=== PATIENT | male | born 1995 | race Caucasian/White ===

== ENCOUNTER 2021-10-21 18:16 | Emergency (ER) | payer MEDICAID, SELFPAY ==
[2021-10-21 19:49] VITALS: BP 153/81; PULSE 77; RESP 18; TEMP 36.5; O2SAT 99
[2021-10-21 20:19] LABS: Appearance Urine CLEAR; Color Urine YELLOW; Glucose Urine UA NEG (NEG); Leukocyte Esterase Urine NEG (NEG); Nitrite Urine NEG (NEG); Urine Blood NEG (NEG); Urine Ketones NEG (NEG); Urine Protein NEG (NEG-TRACE)
[2021-10-21 20:30] LABS: RBC Urine 0-2 /HPF (0); WBC Urine 0-2 /HPF (0-4)
--- NOTE | 2021-10-21 20:30 | ED.GENADULT ---
HPI - General Adult General Chief complaint: General Medical Stated complaint: ?STD Source: patient Mode of arrival: ambulatory Limitations: no limitations History of Present Illness HPI narrative: 25-year-old male presents with suspicion for sexually transmitted infection and anxiety. Onset (ago): day(s) Location: genitals Severity: moderate Associated symptoms: denies other symptoms Treatments prior to arrival: none Related Data Previous Rx's Medication Instructions Recorded hydroxyzine HCl 25 mg tablet 25 mg PO TID PRN #30 tab 10/21/21 metronidazole 500 mg tablet 500 mg PO Q12H 7 Days #14 tab 10/21/21 Allergies Allergy/AdvReac Type Severity Reaction Status Date / Time No Known Allergies Allergy Verified 10/21/21 20:58 Review of Systems Review of Systems: Constitutional: No Fever, No Chills ENT/Mouth: No Ear Pain, No Hoarseness, No sore throat Eyes: No Eye Pain, No Swelling, No Redness, No Foreign Body Cardiovascular: No Chest Pain, No SOB Respiratory: No Cough, No Dyspnea Gastrointestinal: No Nausea, No Vomiting, No Diarrhea, No abdominal Pain Genitourinary: Positive penile discharge. No Dysuria, No Hematuria Musculoskeletal: No joint pain, No Myalgias, No Joint Swelling Skin: No Skin lacerations, No rash Neuro: No Weakness, No Numbness, No Paresthesias, No Loss of Consciousness, No Dizziness, No Headache Psych: No Anxiety/Panic, No Depression Heme/Lymph: no easy bruising, no Lymphadenopathy Endocrine: No Polyuria, No Polydipsia Yes all other systems are reviewed and are negative [facility] Past Medical History Attestation statement: The following information was validated with the patient. Source: old records reviewed Medical History Anxiety Panic attack Social History Social History Advance Directives: No Advance Directives Information Provided: Yes Physical Exam Vital Signs: Vital Signs: Last Vital Signs Temp 97.7 F 10/21/21 19:49 Pulse 77 10/21/21 19:49 Resp 18 10/21/21 19:49 BP 153/81 H 10/21/21 19:49 Pulse Ox 99 10/21/21 19:49 BMI result Body Mass Index 30.0 Appearance: Alert. Oriented X3. No acute distress. Eyes: Pupils equal, round and reactive to light. ENT: Pharynx normal. Neck: Normal inspection. Neck supple. CVS: Normal heart rate and rhythm. Pulses normal. Respiratory: No respiratory distress. Breath sounds normal. Abdomen: Soft and nontender. Genitourinary: Positive penile discharge. No testicular tenderness lesions or penile pain noted. Skin: Skin warm and dry. Normal skin color. Normal skin turgor. Extremities: No lower extremity edema. Neuro: No motor deficit. No sensory deficit. Course Course Course Narrative: 25-year-old male presents with suspicion for STI. Will test for GC chlamydia. Treat with azithromycin and ceftriaxone. During initial consult patient stated that he feels significant anxiety. Has had palpitations in the past and was worked up by Cardiology approximately 1 month ago or less with a Holter monitor. Patient did not have any significant findings from that exam. States that he was prescribed propranolol however stopped taking it as he did not feel well on that medication. Will order EKG. EKG shows normal sinus rhythm. I did refer patient back to his housekeeping laundry worker for further evaluation. During discharge instructions patient stated that he feels that he has balanitis. States that he has been googling all of his symptoms and feels that he needs to be treated with further medications. I did prescribe Flagyl. Patient was advised not to drink alcohol with this medication. Patient was not able to be redirected. I did suggest outpatient psychiatry Patient verbalized understanding of and agrees plan of care discharge home. Medical Decision Making Differential Diagnosis Differential Diagnosis: STI, balantitis, anxiety Medical Records Medical records reviewed: Yes I reviewed the patient's medical records. Lab Data Lab results reviewed: Yes I reviewed the patient's lab results. Labs: Lab Results 10/21/21 Range/Units 20:10 Urine Color YELLOW Urine Appearance CLEAR Urine pH 7.0 (5.0-8.0) Ur Specific [place] 1.010 (1.005-1.025) Urine Protein NEG (NEG-TRACE) MG/DL Urine Glucose (UA) NEG (NEG) MG/DL Urine Ketones NEG (NEG) MG/DL Urine Blood NEG (NEG) Urine Nitrite NEG (NEG) Ur Leukocyte Esterase NEG (NEG) Urine RBC 0-2 (0) /HPF Urine WBC 0-2 (0-4) /HPF Ur Squamous Epith Cells NONE /LPF Urine Bacteria NONE /LPF Discharge Plan Discharge Clinical Impression: Sexually transmitted infection, Anxiety, Balanitis Patient Disposition: Home, Self-Care Instructions: Sexually Transmitted Diseases (ED), Safe Sex Practices (ED), Balanitis (ED), Anxiety (ED) Additional Instructions: You were evaluated for sexually transmitted infection. We prescribed azithromycin and ceftriaxone. You do not need further treatment for this incident. If you get re-exposed you will need further treatment. Please inform partners. Your test results are pending. We prescribed Flagyl for balanitis. Please do not drink alcohol you will have significant and severe side effects. Your evaluated for anxiety. EKG is normal sinus rhythm. Please continue follow-up with your housekeeping laundry worker. We prescribed hydroxyzine for anxiety. Please take this medication as prescribed. Please consider following up with outpatient psychiatry. Thank you for choosing this emergency department for evaluation. Please follow-up with primary care physician as needed. Return to the emergency department for any new, concerning, or worsening symptoms. Prescriptions: New hydroxyzine HCl 25 mg tablet 25 mg PO TID PRN (Reason: anxiety) Qty: 30 RF: 0 metronidazole 500 mg tablet 500 mg PO Q12H 7 Days Qty: 14 RF: 0 Interventions: ED Discharge Assessment Last Done: 10/21/21 23:00 Discharge Date/Time: 10/21/21 23:03
--- NOTE | 2021-10-21 20:58 | ECG_ITS ---
Test Reason : ANXIOUS Blood Pressure : / mmHG Vent. Rate : 070 BPM Atrial Rate : 070 BPM P-R Int : 144 ms QRS Dur : 102 ms QT Int : 382 ms P-R-T Axes : 049 067 052 degrees QTc Int : 412 ms Normal sinus rhythm with sinus arrhythmia Normal ECG No previous ECGs available Referred By: Mine Hensley Electronically Signed By:Luciano Jean-Baptiste
[2021-10-21] MEDS: Azithromycin 500 MG TABLET 1000 MG PO (22:25)
[2021-10-21] MEDS: cefTRIAXone sodium 500 MG, Lidocaine HCl 1 % MPF 1 ML IM (22:26)
[2021-10-21] MEDS: Lidocaine HCl 2 % MPF 5 ML VIAL SUBCUT (22:36)
[2021-10-22 06:50] LABS: CT PCR NOT DETECTED (Not Detect.); NG PCR NOT DETECTED (Not Detect.)
== END 2021-10-21 23:03 | disposition home or self-care (01) ==
PROVIDERS: Emergency Provider Emergency Medicine
DX: A64 Unspecified sexually transmitted disease (principal); N48.1 Balanitis; F41.9 Anxiety disorder, unspecified
CPT/HCPCS: 81001; 87491; 87591; 93005; 96372; 99283; 99284; J0696

== ENCOUNTER 2021-11-02 09:39 | Emergency (ER) | payer MEDICAID, SELFPAY ==
[2021-11-02 10:12] VITALS: BP 122/82; PULSE 92; RESP 18; TEMP 36.2; O2SAT 100; BMI 24.5
--- NOTE | 2021-11-02 11:00 | ECG_ITS ---
Test Reason : ARRHYTHMIA Blood Pressure : / mmHG Vent. Rate : 081 BPM Atrial Rate : 081 BPM P-R Int : 146 ms QRS Dur : 092 ms QT Int : 366 ms P-R-T Axes : 072 067 044 degrees QTc Int : 425 ms Normal sinus rhythm Normal ECG When compared with ECG of 21-OCT-2021 22:04, No significant change was found Referred By: Tawana Marcano Electronically Signed By:MARTHA VYAS MD
--- NOTE | 2021-11-02 11:05 | ED_ITS ---
HPI - General Adult General Chief complaint: Arrhythmia/Palpitations Stated complaint: High heart rate Time Seen by Provider: 11/02/21 10:40 Source: patient Mode of arrival: ambulatory Limitations: no limitations History of Present Illness HPI narrative: 25-year-old male here with reports of fast heart rate up to 130 today. Patient tells me that he noticed it while he was showering and checked his pulse and noticed it was passed. He went to lay down and his pulse improved to 80. He tells me he has had intermittent chest pain and palpitations over the last 6 months. He has been seen by a business banking sales assistant through [facility]. He tells me that they have done blood work, chest x-ray, Holter monitor all normal. He is scheduled for an outpatient stress test the end of this month. He was taking propranolol for his heart rate but discontinued this as he was feeling lightheaded from the medication. He denies today any associated chest pain, shortness of breath, nausea, diaphoresis. No recent travel or sick contact. No leg swelling or pain Related Data Previous Rx's Medication Instructions Recorded hydroxyzine HCl 25 mg tablet 25 mg PO TID PRN #30 tab 10/21/21 metronidazole 500 mg tablet 500 mg PO Q12H 7 Days #14 tab 10/21/21 Allergies Allergy/AdvReac Type Severity Reaction Status Date / Time No Known Allergies Allergy Verified 11/02/21 10:12 Review of Systems Review of Systems: Yes all other systems are reviewed and are negative Constitutional: Constitutional: Reports no additional constitutional complaints, Denies body ache(s), Denies chills, Denies fever(s), Denies headache(s) and Denies weakness Eyes: Eyes: Reports no additional eye complaints and Denies change in vision ENT: Reports system reviewed and no additional complaints, except as documented, Denies dizziness, Denies headache(s), Denies nasal congestion, Denies nasal discharge and Denies neck pain Cardiovascular: Cardiovascular: Reports no additional cardiovascular complaints, Denies chest pain, Denies leg edema, Reports palpitations and Denies dyspnea Respiratory: Respiratory: Reports no additional respiratory complaints, Denies cough and Denies dyspnea Gastrointestinal: Gastrointestinal: Reports no additional gastrointestinal complaints, Denies abdominal pain, Denies diarrhea, Denies nausea and Denies vomiting Genitourinary: Genitourinary: Denies urinary incontinence Musculoskeletal: Musculoskeletal: Reports no additional musculoskeletal complaints, Denies back pain, Denies arthralgias, Denies joint swelling, Denies neck pain, Denies numbness and Denies tingling Integumentary/Breasts: Skin/Breast: Reports system reviewed and no additional complaints, except as docu and Denies rash Neurologic: Reports system reviewed and no additional complaints, except as documented, Denies Abnormal speech present, Denies dizziness, Denies headache(s), Denies numbness, Denies tingling and Denies weakness Endocrine: Endocrine: Reports palpitations PMFSH Past Medical History Attestation statement: The following information was validated with the patient. Source: old records reviewed and nursing notes reviewed Medical History Anxiety Panic attack Social History Social History Alcohol intake: former Patient Tobacco Use Status: Former Tobacco user Smoked in Last 30 Days: No Use of substances other than those prescribed or required for medical reasons: No Advance Directives: Yes Advance Directives Information Provided: Yes Advance Directives on File: No Physical Exam Vital Signs: Vital Signs: Last Vital Signs Temp 98.5 F 11/02/21 11:11 Pulse 90 11/02/21 11:14 Resp 16 11/02/21 11:11 BP 134/88 11/02/21 11:14 Pulse Ox 100 11/02/21 11:11 BMI result Body Mass Index 24.5 Const: General: cooperative, healthy appearing, comfortable and no acute distress Orientation/consciousness: patient oriented x3 Limitations: no limitations HENMT: Head: Yes normal to inspection Ears: hearing grossly normal bilaterally General nose exam: Normal external nose present Face and sinus: Yes normal facial exam Mouth: Normal oral and palatal mucosa present Throat: Yes posterior oropharynx normal Eyes: General: appearance normal, both eyes and all related structures Pupils: Equal, round and reactive pupils present Neck: Neck: Yes normal visual inspection Chest: Chest palpation & inspection: normal inspection of the chest Resp: Effort & Inspection: normal respiratory effort Auscultation: clear to auscultation bilaterally Cardio: Rate: regular rate Rhythm: regular rhythm Peripheral pulses: Peripheral pulses 2+ throughout GI: Inspection: Yes normal to inspection Palpation (GI): Soft to palpation and nontender Auscultation: normal bowel sounds Back/Spine/Pelvis: Thoracic/Lumbar Spine: thoracic and lumbar spine normal to inspection Skin: General skin exam: no rashes or lesions noted Neuro: General: patient oriented x3, no focal motor deficits and normal sensation to monofilament Cranial nerves: Yes Equal, round and reactive pupils present Cognition (Neuro): normal cognition Speech: No Abnormal speech present Gait exam (Neuro): Normal gait present Motor exam (neuro): 5/5 motor strength present throughout Extrem: General: Yes normal to inspection, Yes no pedal edema and Yes no calf tenderness Course Course Course Narrative: 25-year-old male with longstanding history of tachycardia, intermittent chest pain followed by cardiology here with reports of palpitations with heart rate of 120-130 today while standing. No other associated symptoms. On arrival the patient's heart rate is normal. Exam is benign. Will check labs, EKG, orthostatics vital signs 1230-labs unremarkable. EKG shows no ischemic ischemic changes with a normal troponin. Orthostatics are negative. Patient has a heart rate of 80 sinus rhythm on the case monitor while he has been here in the emergency department with no changes. Recommend he follow-up outpatient with his primary care doctor. He was informed that his AST and ALT are mildly elevated he can follow up with primary care doctor for repeat labs. no abdominal pain or vomiting. Reviewed worrisome signs and symptoms of when to return to the emergency department. Comfortable discharge home. Medical Decision Making Medical Records Medical records reviewed: Yes I reviewed the patient's medical records. Lab Data Lab results reviewed: Yes I reviewed the patient's lab results. Result diagrams: 11/02/21 11:19 11/02/21 11:19 Labs: Lab Results 11/02/21 11/02/21 11/02/21 Range/Units 11:19 11:19 11:19 WBC 6.0 (4.8-10.8) X10*3/uL RBC 5.81 H (4.60-5.80) X10*6/uL Hgb 16.0 (14.0-18.0) g/dl Hct 45.8 (42.0-52.0) % MCV 78.8 L (80.0-98.0) fL MCH 27.5 (27.0-33.0) pg MCHC 34.9 (31.0-36.0) g/dl RDW 12.3 (11.0-16.0) % Plt Count 192 (160-400) X10*3/uL MPV 9.7 (9.4-12.4) fL Immature Gran % (Auto) 0.2 (0.0-0.4) % Neut % (Auto) 57.2 (45-73) % Lymph % (Auto) 31.4 (20-40) % [place] % (Auto) 8.5 (2-11) % Eos % (Auto) 2.5 (0-4) % Baso % (Auto) 0.2 (0-2) % Lymph # (Auto) 1.9 (1.2-4.9) X10*3/uL [place] # (Auto) 0.5 (0.1-1.2) X10*3/uL Eos # (Auto) 0.2 (0.0-0.4) X10*3/uL Baso # (Auto) 0.0 (0.0-0.2) X10*3/uL Abs Immat Gran (auto) 0.01 (0.00-0.03) X10*3/uL Absolute Neuts (auto) 3.4 (2.0-8.3) x10*3/uL Absolute Nucleated RBC 0.000 (0.0-0.012) X10*3/uL Nucleated RBC % (auto) 0.0 (0.0-0.2) /100WBC Sodium 140 (135-145) mmol/L Potassium 3.9 (3.3-5.1) mmol/L Chloride 106 (96-108) mmol/L Carbon Dioxide 25 (22-29) mmol/L Anion Gap 13 (12-20) BUN 12 (9-16) mg/dL Creatinine 0.91 (0.5-1.4) mg/dL Estim Creat Clear Calc 122.1 Estimated GFR > 60 Random Glucose 82 (60-115) mg/dL Calcium 9.9 (8.4-10.2) mg/dL Magnesium 2.1 (1.6-2.6) mg/dL Total Bilirubin 1.5 H (0.0-1.0) mg/dL Direct Bilirubin 0.5 (0.0-0.5) mg/dL AST 52 H (5-37) U/L ALT 86 H (0-40) U/L Alkaline Phosphatase 86 (39-117) U/L Troponin I High Sens < 3.5 (<3.5-35.0) ng/L Total Protein 7.5 (6.5-8.0) g/dL Albumin 4.8 (3.5-5.0) g/dL TSH 1.56 (0.32-4.0) uIU/mL Discharge Plan Discharge Clinical Impression: Palpitations Patient Disposition: Home, Self-Care Instructions: Heart Palpitations (ED) Additional Instructions: Blood work looks all normal with the exception of mildly elevated liver enzymes. These can be checked outpatient by your primary care doctor Follow-up with your business banking sales assistant outpatient Prescriptions: No Action hydroxyzine HCl 25 mg tablet 25 mg PO TID PRN (Reason: anxiety) Qty: 30 RF: 0 metronidazole 500 mg tablet 500 mg PO Q12H 7 Days Qty: 14 RF: 0 Referrals: Physician,None [Primary Care Provider] - 2 days
[2021-11-02 11:11] VITALS: BP 125/89; PULSE 73; RESP 16; TEMP 36.9; O2SAT 100
[2021-11-02 11:12] VITALS: BP 108/76; PULSE 82
[2021-11-02 11:13] VITALS: BP 110/86; PULSE 86
[2021-11-02 11:14] VITALS: BP 134/88; PULSE 90
[2021-11-02 11:26] LABS: MANUAL DIFF FLAG NO
[2021-11-02 11:29] LABS: Basophils Percent Auto 0.2 % (0-2); Eosinophils Absolute Auto 0.2 X10*3/uL (0.0-0.4); Eosinophils Percent Auto 2.5 % (0-4); Hematocrit 45.8 % (42.0-52.0); Imm Gran Abs Auto 0.01 X10*3/uL (0.00-0.03); Imm Gran Pct Auto 0.2 % (0.0-0.4); Lymphocytes Absolute Auto 1.9 X10*3/uL (1.2-4.9); Lymphocytes Percent Auto 31.4 % (20-40); Mean Corpuscular HGB Conc 34.9 g/dl (31.0-36.0); Mean Corpuscular Hemoglobin 27.5 pg (27.0-33.0); Mean Corpuscular Volume 78.8 fL (80.0-98.0); Mean Platelet Volume 9.7 fL (9.4-12.4); Monocytes Absolute Auto 0.5 X10*3/uL (0.1-1.2); Monocytes Percent Auto 8.5 % (2-11); Neutrophils Absolute Auto 3.4 x10*3/uL (2.0-8.3); Neutrophils Percent Auto 57.2 % (45-73); Platelet Count 192 X10*3/uL (160-400); Red Blood Count 5.81 X10*6/uL (4.60-5.80); Red Cell Distribution Width 12.3 % (11.0-16.0)
[2021-11-02 11:46] LABS: Alanine Aminotransferase 86 U/L (0-40); Albumin Level 4.8 g/dL (3.5-5.0); Alkaline Phosphatase 86 U/L (39-117); Anion Gap 13 (12-20); Aspartate Amino Transferase 52 U/L (5-37); Bilirubin Direct 0.5 mg/dL (0.0-0.5); Bilirubin Total 1.5 mg/dL (0.0-1.0); Blood Urea Nitrogen 12 mg/dL (9-16); Calcium 9.9 mg/dL (8.4-10.2); Carbon Dioxide 25 mmol/L (22-29); Chloride 106 mmol/L (96-108); Creatinine Clr Calc Pharmacy 122.1; Estimated Glomerular Filt Rate > 60; Glucose Random 82 mg/dL (60-115); Magnesium 2.1 mg/dL (1.6-2.6); Potassium 3.9 mmol/L (3.3-5.1); Sodium 140 mmol/L (135-145); Total Protein 7.5 g/dL (6.5-8.0)
[2021-11-02 11:49] LABS: Troponin-I High Sensitivity < 3.5 ng/L (<3.5-35.0)
[2021-11-02 12:07] LABS: Thyroid Stimulating Hormone 1.56 uIU/mL (0.32-4.0)
== END 2021-11-02 13:06 | disposition home or self-care (01) ==
PROVIDERS: Nurse Practitioner Family; Emergency Provider Emergency Medicine
DX: I49.9 Cardiac arrhythmia, unspecified (principal); R00.2 Palpitations; Z87.891 Personal history of nicotine dependence; Z79.899 Other long term (current) drug therapy
CPT/HCPCS: 36415; 80048; 80076; 83735; 84443; 84484; 85025; 93005; 99283; 99284

== ENCOUNTER 2023-11-21 12:24 | Outpatient (REF) | payer MEDICAID, SELFPAY ==
[2023-11-26 20:12] LABS: Immunoglobulin A 214 mg/dL (47-310); Transglutaminase IgA <1.0 U/mL
== END 2023-11-21 12:25 | disposition home or self-care (01) ==
LOC: HO.HHCL 12:24
PROVIDERS: Visit Provider Internal Medicine
DX: R10.84 Generalized abdominal pain (principal)
CPT/HCPCS: 36415; 80048; 80076; 82784; 84443; 85025; 86364